=== PATIENT | female | born 1960 | race Two or more races ===

== ENCOUNTER 2022-04-25 04:45 | Day surgery (SDC) | payer OTHER ==
[~2022-04-25] VITALS: Ht 162.6 cm; Wt 68.0 kg
[~2022-04-25 04:45] MED LIST: ATORVAST PO; ENALAP PO; FOSAM PO; GLUMETZA500 MG PO; SYNTHROID50 MCG PO; TOPROL XL50 M1 PO; VITAMIN D PO
[2022-04-25] MEDS ORDERED: PERCOCET 5-3251 EACH PO (09:35)
== END 2022-04-25 11:55 | disposition home or self-care (01) ==
LOC: CIR.AMB 04:45
PROVIDERS: ATTEND Surgery
DX: D35.1 Benign neoplasm of parathyroid gland (principal); E21.0 Primary hyperparathyroidism; Z20.822 Contact with and (suspected) exposure to COVID-19; Z88.8 Allergy status to other drugs, medicaments and biological substances; I10 Essential (primary) hypertension; E11.9 Type 2 diabetes mellitus without complications; E03.9 Hypothyroidism, unspecified